=== PATIENT | female | born 1980 | race Caucasian/White ===

== ENCOUNTER 2017-10-10 13:01 | Inpatient (IN) | payer OTHER ==
--- NOTE | 2017-10-10 13:58 | HP ---
General Information - Reason for Visit Postdates in labor - General Information Maternal Age: 37 Grav: 6 Para: 5 SAB: 0 IEA: 0 Estimated Due Date: 10/04/17 Determined By: LMP - confirmed by 8 week sono Gestational Age in Weeks/Days: 40-6/7 Maternal Blood Type and Rh: A Positive - Results this Serology/RPR Result: Non-Reactive Rubella Result: Immune HBsAg Result: Negative HIV Result: Negative GBS Culture Result: Negative Past Medical History Delivery History: Hx Uncomplicated Vaginal Delivery Delivery History Comment: 08/1998 7lb 6oz male at [place], [place] (FOB#1) 04/2001 7lb 7oz female at [place], [place] (FOB #1) 03/2010 7lb 2oz male at [facility] [place] with Sandi Lyles CNM (FOB #2) 05/2012 6lb 5oz male at [facility] [place] by Rain Real CNM (FOB #2) 11/2015 7lb 4oz male at [facility] [place] by Giorgi Martin CNM (FOB #2) Pertinent Past Medical History: Non-Contributory Pertinent Past Surgical History: None Pertinent Family History: See Records Family History Comment: Mother: COPD, heart murmur. pancreatic cancer Sister: Asthma, cervical cancer PGM: leukemia PGF: MD. prostate cancer MGM: cancer MGF: heart disease (pace maker), DM. unknown causes - Antepartal Records Antepartal Records: Reviewed, Complicated by: - Grand mulitiparity. AMA declined all genetic screening. Bilateral LE varicose veins Review of Systems Constitutional: Uncomfortable - with UCs but coping well CV Complaint: No Respiratory: Shortness of Breath: No Gastrointestinal: No Nausea/Vomiting, Normal Bowel Movement Genitourinary: Leaking Fluid - ? since 1630 10/10/2017. ROM + pending, No Dysuria , No Bleeding Musculoskeletal: Contractions Neurological: No Headache, No Visual Changes Movement: Normal Exam Allergies/Adverse Reactions: Allergies No Known Allergies Allergy (Verified 01/15/15 18:31) BP 120/75 HR 84 T 97.7 RR 18 SpO2 100% on RA - Measurements Height: 5 ft 2 in Weight: 155 lb Weight in lbs: 155.685204 Body Mass Index (BMI): 28.3 Pre- Weight: 132 lb Weight Gained This : 23 lbs and 0 ozs - Exam Breast: Breast Exam Deferred CVA: No CVA Tenderness Extremities: No Edema - Extensive varicose veins on LE bilaterally Heart: Normal Rhythm/Heart Sounds HEENT: No Significant Findings Lungs: Clear Bilaterally Rectal: Rectal Exam Deferred Reflexes: DTR 2+ Thyroid: No Thyromegaly - Abdominal Exam Abdomen Exam: Non-Tender, Fundal Height Consistent with Dates - Ultrasound/Biophysical Profile Ultrasound Status: Not Done Targeted Exam Findings See L&D Outpatient Visit Provider Note for Findings: N/A Estimated Weight: EFW 7lbs by Jania Cervical Exam: 5cm Effacement: 80% Station: -1 Presenting Part: Vertex Membrane Status: Bulging Sterile Speculum Exam: not done Bleeding/Discharge: None EFM Findings - External Monitor Findings Baseline Heart Rate: 135 External Monitor Findings: Accelerations Present, No Pattern of Variable or Late Decelerations, Variability Moderate, Baseline Stable External Monitor Findings Comment: No evidence of metabolic acidemia Contractions: Regular, Moderate, Strong, 45-90 Seconds, >90 Seconds Contraction Frequency: q 4 min Assessment/Plan - Assessment IUP at 40-6/7 in early active labor Doubt membrane rupture per exam but ROM + still pending - Plan Plan: Observe, Admit - Anticipate Vaginal Delivery Plan Comment: Admit. Pt prefers expectant management. Anticipate - Date/Time of Admission Date of Admission: 10/10/17 Time of Admission: 13:55
[2017-10-10] MEDS ORDERED: Acetaminophen TAB* 325 MG PO PRN (17:19)
[2017-10-10] MEDS ORDERED: Dibucaine 1% 28.35 GM TUBE PR PRN (17:19)
[2017-10-10] MEDS ORDERED: Glycerin ADULT SUPP PR PRN (17:19)
[2017-10-10] MEDS ORDERED: Witch Hazel PAD* JAR TOPICAL PRN (17:19)
--- NOTE | 2017-10-10 17:23 | PROCNOTE ---
[facility] OB: Delivery Note - Delivery A Date of : 10/10/17 Time of : 16:48 [place] Sex: Male Weight at : 7 lb 5 oz Score 1 Minute: 8 Score 5 Minutes: 8 Gestational Age in Weeks and Days at Delivery: 40 Weeks and 6 Days Delivery Method: Spontaneous Vaginal Labor: Spontaneous Did Patient attempt ?: N/A, No Previous Amniotic Fluid: Meconium Estimated Blood Loss: 300 Anesthesia/Analgesia: None Delivered By: Rain Real - Nursery Level of Nursery: Regular/Bedside - Perineum Perineal Injury: None/Intact Perineal Repair: None - Events Delivery Events of Note: None Apply - Additional Delivery Notes Additional Delivery Notes: Pt admitted in labor with expected progression to complete. Leaking clear fluid at 1545. Spontaneous rupture of forebag with onset of pushing at 1645. Pushed x 1 min. liveborn male. Slow, controlled delivery of head. OA to FIDE. Shoulders followed with maternal push. Nuchal cord x 1. somersaulted through. vigorous with spontaneous cry. HR>110bpm. Delivered to maternal abdomen. Cord clamped x 2 and cut by pt's sister once pulsations ceased. Spontaneous delivery intact placenta. Membranes complete. Fundus firm to massage with minimal bleeding noted. Perineum intact. No repair needed as above. EBL 300mL. At time of note mother and in stable condition. Planning to breast feed.
[2017-10-10] MEDS ORDERED: Simethicone TAB* 80 MG TAB.CHEW PO SCH (17:30)
[2017-10-10] MEDS: Docusate CAP* 100 MG PO SCH (21:15)
[2017-10-11] MEDS: Ibuprofen TAB* 600 MG PO PRN ×2 (04:41→12:10)
[2017-10-11 06:28] LABS: ABS Basophils 0.1 10^3/ul (0-0.2); ABS Eosinophils 0 10^3/ul (0-0.6); ABS Lymphocytes 1.3 10^3/ul (1.0-4.8); ABS Monocytes 1.1 10^3/ul (0-0.8); ABS Neutrophils 10.7 10^3/ul (1.5-7.7); ABS Nucleated RBC 0 10^3/ul; Eosinophil % 0.2 % (0-6); Hematocrit 35 % (35-47); Hemoglobin 12.4 g/dl (12.0-16.0); Lymphocyte % 9.9 % (25-47); Mean Corpuscular HGB Conc 35 g/dl (31-36); Mean Corpuscular Hemoglobin 34 pg (27-31); Mean Corpuscular Volume 96 fL (80-97); Mean Platelet Volume 8.5 um3 (7.4-10.4); Nucleated Red Blood Cells % 0; Platelet Count 179 10^3/ul (150-450); Red Blood Count 3.64 10^6/ul (4.00-5.40); Red Cell Distribution Width 12 % (10.5-15); White Blood Count 13.2 10^3/ul (3.5-10.8)
[2017-10-11] MEDS: Docusate CAP* 100 MG PO SCH ×2 (08:04→14:56)
[2017-10-11] MEDS ORDERED: Ferrous Gluconate TAB* 324 MG TAB PO SCH (09:00)
[2017-10-11 12:11] VITALS: BP 111/69
== END 2017-10-11 18:41 | disposition home or self-care (01) | DRG 560 ==
LOC: MCHOBOUT 13:01 → MCHOB 13:53
PROVIDERS: ADMIT Midwife; ATTEND Midwife
PROC: 10E0XZZ Delivery of Products of Conception, External Approach (ICD-10-PCS; principal; 2017-10-10)
DX: O48.0 Post-term pregnancy (principal); O77.0 Labor and delivery complicated by meconium in amniotic fluid; O69.81X0 Labor and delivery complicated by cord around neck, without compression, not applicable or unspecified; Z37.0 Single live birth; Z3A.40 40 weeks gestation of pregnancy
CPT/HCPCS: 36415; 84112; 85025; A9270-GY

== ENCOUNTER 2018-04-02 12:14 | Emergency (ER) | payer OTHER ==
[2018-04-02 13:45] VITALS: BP 139/87
--- NOTE | 2018-04-02 13:51 | UC ---
Knee Pain HPI - HPI Summary HPI Summary: Patient is a 38 year old female , who present today to the urgent care with left knee pain since yesterday. She reports that was roller blading at [employer] in [place] and she fell down with possible twisting her knee along with viral versus stress to her left knee. She was not able to be her weight at all. She took ibuprofen for pain control. Denies any past injury. - History of Current Complaint Chief Complaint: UCLowerExtremity Stated Complaint: LEFT KNEE PAIN Time Seen by Provider: 04/02/18 13:48 Hx Obtained From: Patient Hx Last Menstrual Period: hasn't had once since before she got in 2016 ?: No Pain Intensity: 6 - Allergies/Home Medications Allergies/Adverse Reactions: Allergies Allergy/AdvReac Type Severity Reaction Status Date / Time No Known Allergies Allergy Verified 04/02/18 13:44 Home Medications: Home Medications Ibuprofen TAB* [Advil TAB*] 400 mg PO ONCE PRN 04/02/18 [History Confirmed 04/02] PMH/Surg Hx/FS Hx/Imm Hx - Additional Past Medical History Additional PMH: No significant past medical history Previously Healthy: Yes - Surgical History Surgical History: Yes Surgery Procedure, Year, and Place: LEEP - Family History Known Family History: Positive: Unknown - Social History Alcohol Use: Occasionally Substance Use Type: Marijuana Smoking Status (MU): Former Smoker Type: Cigarettes Amount Used/How Often: a few/ month "social" Have You Smoked in the Last Year: Yes - Immunization History Most Recent Influenza Vaccination: never Most Recent Tetanus Shot: 08/23/15 Most Recent Pneumonia Vaccination: never Review of Systems All Other Systems Reviewed And Are Negative: Yes Constitutional: Positive: Negative Skin: Positive: Negative Eyes: Positive: Negative ENT: Positive: Negative Respiratory: Positive: Negative Cardiovascular: Positive: Negative Gastrointestinal: Positive: Negative Genitourinary: Positive: Negative Neurovascular: Positive: Negative Musculoskeletal: Positive: Arthralgia - Left knee, Decreased ROM - Left knee Neurological: Positive: Negative Psychological: Positive: Negative Is Patient Immunocompromised?: No Physical Exam - Summary Physical Exam Summary: Physical Exam: Const: Appears well. No signs of apparent distress present. Alert and oriented x 3. Musculo: Walks using crutches Head/Face: Atraumatic, normocephalic on inspection. Eyes: EOMI and PERRLA in both eyes. Conjunctivae clear. No discharge noted ENT: Hearing normal, Respiratory: Respirations are unlabored. CVS: Regular rate and Rhythm, S1S2 normal , no murmurs identified. Extremities: Peripheral circulation is grossly normal. Pulses 2+ Abdomen : Soft non tender Skin: No lesions or rash located on the upper extremities or on the lower extremities. Neuro: Cranial nerves II to XII intact, motor and sensory intact. DTR Intact bilaterally. Mood is normal. Affect is normal. Left Knee: Insp/Palp: No effusion noted. There is significant tenderness to palpation on the medial joint line. Strength: 4/5 in quadriceps ROM : limited and painful range of motion 0-70 actively slightly more passively but it's very painful, Special Tests: Dorie test is negative with firm end point. Valgus stress test at 30 degrees flexion is positive for pain and minimal laxity. Valgus stress test at 30 without any pain or laxity. Beck's test is painful. Triage Information Reviewed: Yes Vital Signs: Initial Vital Signs Temp 98.2 F 04/02/18 13:39 Pulse 88 04/02/18 13:39 Resp 16 04/02/18 13:39 BP 139/87 04/02/18 13:39 Pulse Ox 97 04/02/18 13:39 Vital Signs Reviewed: Yes Diagnostics - Radiology No standard instances Radiology Interpretation Completed By: Radiologist - Left knee Xrays: IMPRESSION : NO EVIDENCE FOR FRACTURE. Knee Pain Course/Dx - Course Course Of Treatment: During the visit today, we obtained xrays of left knee: negative for fracture. Her symptoms appear to be consistent with left knee MCL strain . We discussed the findings . Plan left knee immobilizer and nonweightbearing crutches. Patient expressed understanding . - Differential Dx/Diagnosis Provider Diagnosis: Sprain of medial collateral ligament of left knee, Sprain of medial collateral ligament of left knee, initial encounter Discharge - Sign-Out/Discharge Documenting (check all that apply): Patient Departure All imaging exams completed and their final reports reviewed: Yes - Discharge Plan Condition: Stable Disposition: HOME Patient Education Materials: Knee Pain (ED), Knee Immobilizer (ED) Referrals: No Primary Care Phys,NOPCP [Primary Care Provider] - Dinora Murray MD [Medical Doctor] - 3 Days Additional Instructions: Start using the immobilizer. Nonweightbearing in crutches for now and slowly progress to full weightbearing as tolerated . Try gentle range of motion as tolerated. Ibuprofen as needed for pain control. Ice 15 minutes at a time, 3-4 times a day Follow up with orthopedics in 2-3 days Patients blood pressure slightly high in Urgent care today , plan follow up with PCP for better control Return to Urgent care / ER if symptoms get worse. - Billing Disposition and Condition Condition: STABLE Disposition: Home
== END 2018-04-02 15:01 | disposition home or self-care (01) ==
LOC: UCEAST 12:14
DX: S83.412A Sprain of medial collateral ligament of left knee, initial encounter (principal); Z87.891 Personal history of nicotine dependence; W18.39XA Other fall on same level, initial encounter; Y93.51 Activity, roller skating (inline) and skateboarding; Y92.89 Other specified places as the place of occurrence of the external cause
CPT/HCPCS: 99212; G0463

== ENCOUNTER 2021-06-18 20:00 | Inpatient (IN) ==
[2021-06-18] MEDS ORDERED: Lactated Ringers 1000 ml BAG 1,000 ML IV ONE (21:17)
[2021-06-18] MEDS ORDERED: Buffered Lidocaine 1% SYRIN 1 ml INTRADERM ONE (21:17)
[2021-06-18 23:18] LABS: Urine Benzodiazepine Screen None Detected (None Detect); Urine Cannabinoids Screen None Detected (None Detect); Urine Opiates Screen None Detected (None Detect)
[2021-06-19] MEDS ORDERED: Oxytocin in LR 20 UNITS/1,000 ML BAG IVPB SCH ×2 (07:00→21:00)
[2021-06-19 07:09] LABS: ABS Lymphocytes 1.2 10^3/ul (1.0-4.8); ABS Monocytes 0.8 10^3/ul (0-0.8); ABS Neutrophils 9.2 10^3/ul (1.5-7.7); Eosinophil % 0.3 %; Hematocrit 37 % (35-47); Hemoglobin 12.8 g/dL (12.0-16.0); Lymphocyte % 10.4 %; Mean Corpuscular HGB Conc 34 g/dL (31-36); Mean Corpuscular Hemoglobin 34 pg (27-31); Mean Corpuscular Volume 99 fL (80-97); Platelet Count 226 10^3/uL (150-450); Red Blood Count 3.78 10^6 /uL (3.70-4.87); Red Cell Distribution Width 13 % (10-15); White Blood Count 11.3 10^3/uL (3.5-10.8)
[2021-06-19] MEDS ORDERED: Dibucaine 1% OINT 28.35 GM TUBE PR PRN (20:47)
[2021-06-19] MEDS ORDERED: Witch Hazel PAD JAR TOPICAL PRN (20:47)
[2021-06-19] MEDS ORDERED: Lactated Ringers 1000 ml BAG 1,000 ML IV SCH (21:00)
[2021-06-20 06:52] LABS: ABS Lymphocytes 1.1 10^3/ul (1.0-4.8); ABS Monocytes 0.8 10^3/ul (0-0.8); ABS Neutrophils 13.4 10^3/ul (1.5-7.7); Hematocrit 37 % (35-47); Lymphocyte % 7.2 %; Mean Corpuscular HGB Conc 35 g/dL (31-36); Mean Corpuscular Hemoglobin 35 pg (27-31); Mean Corpuscular Volume 98 fL (80-97); Mean Platelet Volume 9.3 fL (7.4-10.4); Platelet Count 236 10^3/uL (150-450); Red Blood Count 3.77 10^6 /uL (3.70-4.87); Red Cell Distribution Width 13 % (10-15); White Blood Count 15.3 10^3/uL (3.5-10.8)
[2021-06-20 20:02] VITALS: BP 108/63
== END 2021-06-20 21:25 | disposition home or self-care (01) | DRG 560 ==
LOC: MCHOBOUT 20:00 → MCHOB 21:19
PROVIDERS: ADMIT Advanced Practice Midwife; ATTEND Midwife